=== PATIENT | male | born 1945 ===

== ENCOUNTER 2020-07-14 11:17 | Inpatient (IN) ==
[2020-07-14] MEDS ORDERED: Heparin 5000 UNITS/ML 1 mL VIAL IV PRN (13:00)
[2020-07-14] MEDS ORDERED: Heparin DRIP 25,000 UNITS BAG 25,000 UNITS/500 ML BAG IV SCH ×2 (13:00→22:00)
[2020-07-14 13:57] LABS: ABS Basophils 0.1 10^3/ul (0-0.2); ABS Eosinophils 0.1 10^3/ul (0-0.6); ABS Lymphocytes 2.5 10^3/ul (1.0-4.8); ABS Monocytes 1.3 10^3/ul (0-0.8); ABS Neutrophils 6.8 10^3/ul (1.5-7.7); Eosinophil % 0.6 %; Hematocrit 41 % (42-52); Hemoglobin 14.3 g/dL (14.0-18.0); Lymphocyte % 23.2 %; Mean Corpuscular HGB Conc 35 g/dL (31-36); Mean Corpuscular Hemoglobin 34 pg (27-31); Mean Corpuscular Volume 98 fL (80-94); Mean Platelet Volume 7.5 fL (7.4-10.4); Platelet Count 224 10^3/uL (150-450); Red Blood Count 4.23 10^6 /uL (4.18-5.48); Red Cell Distribution Width 13 % (10-15); White Blood Count 10.7 10^3/uL (3.5-10.8)
[2020-07-14 14:14] LABS: Activated Partial Thrombo Time 54.3 seconds (26.0-38.0); INR 1.2 (0.82-1.09)
[2020-07-14 14:17] LABS: ALT 11 U/L (7-52); AST 26 U/L (13-39); Albumin 4.2 g/dL (3.2-5.2); Albumin/Globulin Ratio 1.5 (1-3); Alkaline Phosphatase 52 U/L (34-104); Anion Gap 10 mmol/L (2-11); BUN/Creatinine Ratio 23.8 (8-20); Blood Urea Nitrogen 35 mg/dL (6-24); CO2 Carbon Dioxide 22 mmol/L (22-32); Calcium 9.6 mg/dL (8.6-10.3); Chloride 107 mmol/L (101-111); EGFR African American 56.4 (>60); EGFR Non-African American 46.6 (>60); Globulin 2.8 g/dL (2-4); Glucose 98 mg/dL (70-100); Magnesium 1.8 mg/dL (1.9-2.7); Phosphorus 3.6 mg/dL (2.5-5.0); Potassium 4.5 mmol/L (3.5-5.0); Sodium 139 mmol/L (135-145)
[2020-07-14] MEDS ORDERED: Perflutren Lipid Microsphere 3 ML VIAL ONE (14:21)
[2020-07-14] MEDS ORDERED: Magnesium Sulfate 2 gm BAG 2 GM/50 ML BAG IVPB ONE (14:26)
[2020-07-14] MEDS ORDERED: NS 0.9% 1000 ml BAG 1,000 ML IV SCH ×2 (14:30)
[2020-07-14] MEDS ORDERED: Albuterol/Ipratropium NEB.SOL (2.5/0.5 MG) 3 ML NEB.SOLN ONE (15:19)
[2020-07-14] MEDS: Albuterol/Ipratropium NEB.SOL (2.5/0.5 MG) 3 ML NEB.SOLN INH SCH ×3 (15:28→23:00)
[2020-07-14] MEDS ORDERED: Iohexol 350 (CONTRAST) 200 ML MDV IV ONE (15:34)
[2020-07-14] MEDS ORDERED: Lidocaine 1% VIAL 10 MG/ML VIAL ONE (15:34)
[2020-07-14] MEDS ORDERED: Heparin 2 UNITS/ML 1000 mls 1,000 ML IV ONE (15:34)
[2020-07-14] MEDS ORDERED: Midazolam 5 mg/5 ml VIAL 1 mg/ml 5 ml VIAL (5 mg) ONE (15:43)
[2020-07-14] MEDS ORDERED: diPHENhydraMINE IV 50 MG/ML 1 ml VIAL (BENADRYL) ONE (15:44)
[2020-07-14] MEDS ORDERED: VERAPAMIL 2.5 MG/ML 2 ML VIAL ** 5 mg/2 ml ONE ×2 (15:44→17:16)
[2020-07-14] MEDS ORDERED: nitroGLYCERIN DRIP 0 MCG/0 ML BTL ONE (15:44)
[2020-07-14] MEDS ORDERED: Heparin 1,000 UNIT/ML 10 ml (10,000 UNITS) CATHLAB/DIALYSIS ONE (15:44)
[2020-07-14] MEDS ORDERED: HYDROmorphone 1 MG/1 ML SYRINGE ONE (15:45)
[2020-07-14] MEDS: NS 0.9% 1000 ml BAG 1,000 ML IV SCH (18:01)
[2020-07-14] MEDS: Budesonide NEB 0.5 MG/2 ML NEB.SOLN INH SCH (23:01)
[2020-07-15] MEDS: NS 0.9% 1000 ml BAG 1,000 ML IV SCH ×3 (00:54→16:56)
[2020-07-15] MEDS: Albuterol/Ipratropium NEB.SOL (2.5/0.5 MG) 3 ML NEB.SOLN INH SCH ×6 (05:04→23:00)
[2020-07-15] MEDS: Nicotine PATCH 21 MG/24 HR PATCH TRANSDERM SCH (05:14)
[2020-07-15 05:17] LABS: ABS Basophils 0.1 10^3/ul (0-0.2); ABS Lymphocytes 1.9 10^3/ul (1.0-4.8); ABS Monocytes 1.4 10^3/ul (0-0.8); ABS Neutrophils 8.2 10^3/ul (1.5-7.7); Eosinophil % 0.4 %; Hematocrit 39 % (42-52); Hemoglobin 13.3 g/dL (14.0-18.0); Lymphocyte % 16.7 %; Mean Corpuscular HGB Conc 34 g/dL (31-36); Mean Corpuscular Hemoglobin 33 pg (27-31); Mean Corpuscular Volume 99 fL (80-94); Mean Platelet Volume 7.5 fL (7.4-10.4); Platelet Count 204 10^3/uL (150-450); Red Blood Count 3.99 10^6 /uL (4.18-5.48); Red Cell Distribution Width 13 % (10-15); White Blood Count 11.6 10^3/uL (3.5-10.8)
[2020-07-15 05:34] LABS: Anion Gap 8 mmol/L (2-11); BUN/Creatinine Ratio 29.4 (8-20); Blood Urea Nitrogen 32 mg/dL (6-24); CO2 Carbon Dioxide 21 mmol/L (22-32); Chloride 108 mmol/L (101-111); EGFR African American 79.6 (>60); EGFR Non-African American 65.8 (>60); Glucose 116 mg/dL (70-100); Magnesium 2.1 mg/dL (1.9-2.7); Phosphorus 3.9 mg/dL (2.5-5.0); Potassium 4.3 mmol/L (3.5-5.0); Sodium 137 mmol/L (135-145)
[2020-07-15] MEDS: Budesonide NEB 0.5 MG/2 ML NEB.SOLN INH SCH ×2 (07:08→19:20)
[2020-07-15] MEDS: SPIRIVA Respimat (tiotropium) 2.5 mcg/inh Inhaler INH SCH (07:08)
[2020-07-15] MEDS: DULoxetine DR 60 mg CAP PO SCH (08:38)
[2020-07-15] MEDS ORDERED: Arformoterol (NF) 15 MCG/2 ML NEB.SOLN INH SCH (09:00)
[2020-07-15] MEDS ORDERED: diPHENhydraMINE IV 50 MG/ML 1 ml VIAL (BENADRYL) ONE (09:10)
[2020-07-15] MEDS ORDERED: Midazolam 5 mg/5 ml VIAL 1 mg/ml 5 ml VIAL (5 mg) ONE (09:10)
[2020-07-15] MEDS ORDERED: Lidocaine 1% VIAL 10 MG/ML VIAL ONE ×2 (09:11→10:38)
[2020-07-15] MEDS ORDERED: Heparin 2 UNITS/ML 1000 mls 3,000 ML IV ONE (09:11)
[2020-07-15] MEDS ORDERED: HYDROmorphone 1 MG/1 ML SYRINGE ONE (09:11)
[2020-07-15] MEDS ORDERED: Iohexol 350 (CONTRAST) 200 ML MDV IV ONE ×2 (09:11→09:13)
[2020-07-15] MEDS ORDERED: nitroGLYCERIN DRIP 25,000 MCG/250 ML BTL ONE (09:12)
[2020-07-15] MEDS ORDERED: Adenosine (DIAGNOSTIC) 3 mg/ml 20 ML VIAL (60 MG) IV ONE (09:43)
[2020-07-15] MEDS ORDERED: Adenosine 3 MG/ML 2 ml VIAL (6 mg) ONE (09:44)
[2020-07-15] MEDS ORDERED: Bivalirudin 250 MG VIAL ONE (09:57)
[2020-07-15] MEDS ORDERED: Heparin 1,000 UNIT/ML 10 ml (10,000 UNITS) CATHLAB/DIALYSIS ONE (11:09)
[2020-07-15] MEDS ORDERED: VERAPAMIL 2.5 MG/ML 2 ML VIAL ** 5 mg/2 ml ONE (11:09)
[2020-07-15] MEDS ORDERED: NS 0.9% 1000 ml BAG 1,000 ML IV SCH (12:45)
[2020-07-15 13:44] LABS: Troponin I 4.26 ng/mL (<0.03)
[2020-07-15] MEDS ORDERED: Heparin DRIP 25,000 UNITS BAG 25,000 UNITS/500 ML BAG IV SCH (16:15)
[2020-07-15] MEDS ORDERED: Heparin 5000 UNITS/ML 1 mL VIAL IV SCH (17:00)
[2020-07-15] MEDS: Heparin DRIP 25,000 UNITS BAG 25,000 UNITS/500 ML BAG IV SCH (17:04)
[2020-07-15 18:36] LABS: Troponin I 3.45 ng/mL (<0.03)
[2020-07-16] MEDS: Heparin DRIP 25,000 UNITS BAG 25,000 UNITS/500 ML BAG IV SCH (03:47)
[2020-07-16] MEDS: Albuterol/Ipratropium NEB.SOL (2.5/0.5 MG) 3 ML NEB.SOLN INH SCH ×5 (03:56→19:30)
[2020-07-16 05:23] LABS: ABS Lymphocytes 1.3 10^3/ul (1.0-4.8); ABS Monocytes 1.4 10^3/ul (0-0.8); ABS Neutrophils 8.4 10^3/ul (1.5-7.7); Eosinophil % 0.3 %; Hematocrit 37 % (42-52); Hemoglobin 12.2 g/dL (14.0-18.0); Lymphocyte % 11.6 %; Mean Corpuscular HGB Conc 34 g/dL (31-36); Mean Corpuscular Hemoglobin 33 pg (27-31); Mean Corpuscular Volume 99 fL (80-94); Mean Platelet Volume 7.8 fL (7.4-10.4); Platelet Count 193 10^3/uL (150-450); Red Blood Count 3.68 10^6 /uL (4.18-5.48); Red Cell Distribution Width 13 % (10-15); White Blood Count 11.2 10^3/uL (3.5-10.8)
[2020-07-16 05:38] LABS: BUN/Creatinine Ratio 21.1 (8-20); Calcium 8.9 mg/dL (8.6-10.3); EGFR African American 63.3 (>60); EGFR Non-African American 52.3 (>60); Potassium 4.1 mmol/L (3.5-5.0)
[2020-07-16] MEDS: Budesonide NEB 0.5 MG/2 ML NEB.SOLN INH SCH (07:17)
[2020-07-16] MEDS: SPIRIVA Respimat (tiotropium) 2.5 mcg/inh Inhaler INH SCH (07:17)
[2020-07-16] MEDS: DULoxetine DR 60 mg CAP PO SCH (08:31)
[2020-07-16] MEDS: Nicotine PATCH 21 MG/24 HR PATCH TRANSDERM SCH (08:32)
[2020-07-16] MEDS: NS 0.9% 1000 ml BAG 1,000 ML IV SCH ×2 (09:00→19:05)
[2020-07-16] MEDS ORDERED: nitroGLYCERIN DRIP 25,000 MCG/250 ML BTL ONE (16:19)
[2020-07-16] MEDS ORDERED: Heparin 2 UNITS/ML 1000 mls 2,000 ML IV ONE (16:19)
[2020-07-16] MEDS ORDERED: Midazolam 5 mg/5 ml VIAL 1 mg/ml 5 ml VIAL (5 mg) ONE (16:19)
[2020-07-16] MEDS ORDERED: Heparin 1,000 UNIT/ML 10 ml (10,000 UNITS) CATHLAB/DIALYSIS ONE (16:19)
[2020-07-16] MEDS ORDERED: VERAPAMIL 2.5 MG/ML 2 ML VIAL ** 5 mg/2 ml ONE (16:19)
[2020-07-16] MEDS ORDERED: Iohexol 350 (CONTRAST) 200 ML MDV IV ONE ×2 (16:20→16:21)
[2020-07-16] MEDS ORDERED: diPHENhydraMINE IV 50 MG/ML 1 ml VIAL (BENADRYL) ONE (16:20)
[2020-07-16] MEDS ORDERED: Lidocaine 1% VIAL 10 MG/ML VIAL ONE (16:20)
[2020-07-16] MEDS ORDERED: Bivalirudin 250 MG VIAL ONE ×2 (17:04→17:18)
[2020-07-16] MEDS ORDERED: Adenosine 3 MG/ML 2 ml VIAL (6 mg) ONE (17:31)
[2020-07-16] MEDS ORDERED: NS 0.9% 1000 ml BAG 1,000 ML IV SCH (18:30)
[2020-07-16] MEDS ORDERED: Bivalirudin 250 MG in NS 0.9% 50 ML 50 ML IV SCH (18:35)
[2020-07-16] MEDS ORDERED: Metoprolol Tartrate 5 mg VIAL 5 ml VIAL (1 mg/ml) ONE (23:58)
[2020-07-17] MEDS: Albuterol/Ipratropium NEB.SOL (2.5/0.5 MG) 3 ML NEB.SOLN INH SCH ×3 (00:05→07:45)
[2020-07-17] MEDS: Budesonide NEB 0.5 MG/2 ML NEB.SOLN INH SCH ×3 (00:06→07:43)
[2020-07-17] MEDS ORDERED: Metoprolol Tartrate 5 mg VIAL 5 ml VIAL (1 mg/ml) IV ONE (04:00)
[2020-07-17 05:14] LABS: Hematocrit 34 % (42-52); Hemoglobin 11.4 g/dL (14.0-18.0); Mean Corpuscular HGB Conc 34 g/dL (31-36); Mean Corpuscular Hemoglobin 33 pg (27-31); Mean Corpuscular Volume 98 fL (80-94); Mean Platelet Volume 7.5 fL (7.4-10.4); Platelet Count 217 10^3/uL (150-450); Red Blood Count 3.43 10^6 /uL (4.18-5.48); Red Cell Distribution Width 13 % (10-15); White Blood Count 13.2 10^3/uL (3.5-10.8)
[2020-07-17 05:21] LABS: ABS Basophils 0.1 10^3/ul (0-0.2); ABS Lymphocytes 1.2 10^3/ul (1.0-4.8); ABS Monocytes 1.7 10^3/ul (0-0.8); ABS Neutrophils 10.2 10^3/ul (1.5-7.7); Lymphocyte % 8.9 %
[2020-07-17 05:31] LABS: BUN/Creatinine Ratio 17.6 (8-20); Calcium 8.5 mg/dL (8.6-10.3); EGFR African American 64.4 (>60); EGFR Non-African American 53.2 (>60); Potassium 3.8 mmol/L (3.5-5.0)
[2020-07-17] MEDS: SPIRIVA Respimat (tiotropium) 2.5 mcg/inh Inhaler INH SCH (07:44)
[2020-07-17] MEDS: Nicotine PATCH 21 MG/24 HR PATCH TRANSDERM SCH (07:52)
[2020-07-17 07:53] LABS: Magnesium 1.7 mg/dL (1.9-2.7)
[2020-07-17] MEDS: DULoxetine DR 60 mg CAP PO SCH (07:53)
[2020-07-17] MEDS ORDERED: Lactated Ringers 1000 ml BAG 1,000 ML IV SCH (08:00)
[2020-07-17] MEDS ORDERED: Magnesium Sulfate IV 3 GM in NS 0.9% 100 ml BAG 100 ML IVPB ONE (08:49)
[2020-07-17] MEDS ORDERED: Albuterol/Ipratropium NEB.SOL (2.5/0.5 MG) 3 ML NEB.SOLN INH SCH (13:00)
[2020-07-17 13:14] VITALS: BP 92/62
[2020-07-18] MEDS ORDERED: Tiotropium Brom/Olodaterol MDI INH SCH (09:00)
== END 2020-07-17 14:40 | disposition home or self-care (01) | DRG 174 ==
LOC: ICU 12:20
PROVIDERS: ADMIT Internal Medicine; ATTEND Internal Medicine